=== PATIENT | female | born 1970 | race Caucasian/White ===

== ENCOUNTER 2019-05-19 12:12 | Inpatient (IN) | payer SELFPAY ==
[2019-05-19] MEDS ORDERED: Adacel (T-DAP) 0.5 ML SYRINGE ONE (12:35)
[2019-05-19 12:37] LABS: INR-International Normal Ratio 1.2; PTT 25.9 SEC (22.9-36.1); Prothrombin Time 15.6 SEC (12.0-14.7)
[2019-05-19 12:40] LABS: BHCG - Serum Indeterminate (NEGATIVE); Pregs Control Background? CLEAR/WHITE (CLR/WHITE); Pregs Control Bar Appear? YES (CONTROL BAR)
[2019-05-19 12:41] LABS: Hemoglobin 12.5 g/dL (12.0-16.0); Mean Corpuscular HGB CONC 32.4 g/dL (32.0-36.0); Mean Corpuscular Hemoglobin 29.9 pg (27.0-31.0); Mean Corpuscular Volume 92.3 fL (78.0-98.0); Mean Platelet Volume 7.2 fL (7.4-10.4); Platelet Count 260 thou/uL (130-400); RBC Distribution Width 12.9 % (11.5-14.5); Red Blood Cell (RBC) Count 4.19 mill/uL (4.20-5.40); White Blood Cell (WBC) Count 24.8 thou/uL (4.8-10.8)
[2019-05-19] MEDS ORDERED: Albuterol Sulfate 2.5 mg/3 ml Neb ONE (12:46)
[2019-05-19] MEDS ORDERED: Albuterol Sulfate 2.5 mg/0.5 ml Neb ONE (12:46)
[2019-05-19 12:47] LABS: ALT (SGPT) 58 U/L (8-55); AST (SGOT) 89 U/L (5-34); Albumin 3.3 g/dL (3.5-5.0); Alkaline Phosphatase 82 U/L (40-110); Anion Gap 17 mmol/L (10-20); BUN (Urea Nitrogen) 15 mg/dL (7.0-18.7); Bilirubin, Total 0.4 mg/dL (0.2-1.2); Calc. Creatinine Clearance 0 mL/min (70-130); Calcium 8.3 mg/dL (7.8-10.44); Carbon Dioxide 18 mmol/L (22-29); Chloride 105 mmol/L (98-107); Estimated GFR-MDRD 44; Globulin 2.3 g/dL (2.4-3.5); Protein, Total 5.6 g/dL (6.0-8.3); Sodium 136 mmol/L (136-145)
[2019-05-19 12:49] LABS: ALV-art Gradient 634.575 (0-20); Analyzer IN Cardio ER; Base Excess (BEa) -1.5 mEq/L (-2.0 to +3.0); CO2 Tension 25.3 mmHg (35.0-45.0); Calcium, Ionized 1.42 mmol/L (1.12-1.30); Carboxyhemoglobin (COHb) 1.7 gm% (0.0-3.0); Hemoglobin (Hb) 12.8 g/dL (12.0-16.0); O2 Tension (PaO2) 46.8 mmHg (80.0-100.0); Potassium - ABG Lab 3.39 mmol/L (3.70-5.30); Puncture Site LF; pH, Arterial 7.52 (7.35-7.45)
[2019-05-19 12:52] LABS: Glucose 310 mg/dL (70-105)
[2019-05-19 12:58] LABS: Band 35 % (5-11); Eosinophils 14 % (0-10); Lymphocytes 10 % (21-51); MDiff Complete? YES; Monocytes 4 % (0-10); Neutrophil 35 % (42-75); Ovalocytes SLIGHT = 2-5 cells (100X) (0-1/hpf); Platelet Morphology Comment Appears Adequate; Polychromasia SLIGHT = 2-3 cells (100X) (0-2/hpf); Reactive Lymphocytes 2 % (0-10); Tear Drops SLIGHT = 2-5 cells (100X) (0-1/hpf)
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
[2019-05-19] MEDS ORDERED: Iopamidol-370 76% 500 ML 1 ML ONE ×2 (13:36→13:38)
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
[2019-05-19] MEDS ORDERED: manNITOL 20% 0 ML ONE (13:40)
[2019-05-19] MEDS ORDERED: manNITOL 20% 500 ML ONE ×2 (13:41→13:44)
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
[2019-05-19] MEDS ORDERED: hydrALAZINE 20 MG/ML VIAL SLOW IVP PRN (14:07)
[2019-05-19] MEDS ORDERED: Dextrose 50% Abboject 50 ML SYRINGE SLOW IVP PRN (14:07)
[2019-05-19] MEDS ORDERED: Insulin Regular 300 UNITS/3 ML VIAL SC PRN (14:07)
[2019-05-19] MEDS ORDERED: Dextrose 5% in Water 1,000 ML IV PRN (14:07)
[2019-05-19] MEDS ORDERED: Fentanyl 100 MCG/2 ML VIAL SLOW IVP PRN (14:10)
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
[2019-05-19 15:47] LABS: Lactic Acid 5.2 mmol/L (0.5-2.2)
--- NOTE | 2019-05-19 17:24 | ULT ---
Abdominal ultrasound Limited: HISTORY: Postoperative looking for blood and abdomen. A FAST scan was performed. All 4 quadrants were evaluated for the presence for fluid. There is a very small focus of fluid approximating 0.7 x 1.5 cm adjacent to the posterior spleen. IMPRESSION: A small confined focus of fluid is noted posterior to the spleen. No significant free intraperitoneal fluid or hemorrhage demonstrated on this study.
[2019-05-19 18:04] LABS: Actual Bicarbonate (HCO3a) 17.5 mEq/L (22-28); Base Excess (BEa) -6.5 mEq/L (-2.0 to +3.0); CO2 Tension 30.2 mmHg (35.0-45.0); Calcium, Ionized 1.16 mmol/L (1.12-1.30); Carboxyhemoglobin (COHb) 0.6 gm% (0.0-3.0); Hemoglobin (Hb) 11.4 g/dL (12.0-16.0); O2 Tension (PaO2) 145.7 mmHg (80.0-100.0); Potassium - ABG Lab 3.21 mmol/L (3.70-5.30); pH, Arterial 7.38 (7.35-7.45)
[2019-05-19 18:05] LABS: Puncture Site RBR
[2019-05-19 18:46] LABS: Hemoglobin 9.9 g/dL (12.0-16.0); Mean Corpuscular HGB CONC 33.4 g/dL (32.0-36.0); Mean Corpuscular Hemoglobin 30.4 pg (27.0-31.0); Mean Platelet Volume 7.1 fL (7.4-10.4); Platelet Count 142 thou/uL (130-400); RBC Distribution Width 13.1 % (11.5-14.5); Red Blood Cell (RBC) Count 3.24 mill/uL (4.20-5.40)
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
[2019-05-19] MEDS: Sodium Chloride 0.9% 1,000 ML IV SCH (19:00)
[2019-05-19 19:06] LABS: Band 44 % (5-11); Lymphocytes 7 % (21-51); MDiff Complete? YES; Monocytes 8 % (0-10); Neutrophil 39 % (42-75); Platelet Morphology Comment Appears Adequate; Polychromasia SLIGHT = 2-3 cells (100X) (0-2/hpf); Reactive Lymphocytes 2 % (0-10)
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
[2019-05-19 19:42] VITALS: BMI 31.0
[2019-05-19] MEDS ORDERED: Levothyroxine 100 MCG SDV SLOW IVP SCH (20:15)
[2019-05-19] MEDS: Norepinephrine 8 MG in Dextrose 5% in Water 242 ML IVPB PRN (20:20)
[2019-05-19] MEDS: Levothyroxine Sodium 400 MCG in Sodium Chloride 0.9% 100 ML IVPB SCH (20:35)
[2019-05-19 20:42] LABS: Actual Bicarbonate (HCO3a) 14.8 mEq/L (22-28); Base Excess (BEa) -11.2 mEq/L (-2.0 to +3.0); CO2 Tension 33.5 mmHg (35.0-45.0); Carboxyhemoglobin (COHb) 0.1 gm% (0.0-3.0); Hemoglobin (Hb) 10.5 g/dL (12.0-16.0); O2 Tension (PaO2) 82.9 mmHg (80.0-100.0); Potassium - ABG Lab 3.22 mmol/L (3.70-5.30); pH, Arterial 7.26 (7.35-7.45)
[2019-05-19 20:44] LABS: ALV-art Gradient 160.425 (0-20); Puncture Site RBR
[2019-05-19] MEDS ORDERED: Sodium Chloride 0.9% 1,000 ML IV SCH ×2 (20:45→21:30)
[2019-05-19] MEDS ORDERED: Sodium Bicarb 50 MEQ/50 ML Abboject 8.4% SYRINGE IVP SCH (22:00)
[2019-05-19] MEDS: Acetaminophen 1,000 MG in Premix Bag 1 BAG IVPB SCH (22:00)
[2019-05-19] MEDS: CEFAZOLIN 2 GM in Premix Bag 1 BAG IVPB SCH (22:06)
[2019-05-19] MEDS: Famotidine/PF 20 mg/2ml Vial SLOW IVP SCH (22:07)
[2019-05-20] MEDS: Levothyroxine Sodium 400 MCG in Sodium Chloride 0.9% 100 ML IVPB SCH ×3 (00:17→12:24)
[2019-05-20] MEDS: Norepinephrine 8 MG in Dextrose 5% in Water 242 ML IVPB PRN ×3 (00:17→09:37)
[2019-05-20] MEDS: Acetaminophen 1,000 MG in Premix Bag 1 BAG IVPB SCH ×3 (00:17→12:24)
--- NOTE | 2019-05-20 01:21 | PRG ---
DATE OF SERVICE: 05/20/2019 SUBJECTIVE: The patient was seen this evening in the critical care unit. The patient remains on mechanical ventilatory support. The patient has had good urinary output. The patient's blood pressure is currently stable after receiving sodium bicarb and albumin. Pupils are nonreactive and unequal. Left pupil is approximately 4 mm and right pupil approximately 6 mm. The patient does occasionally over breathe the vent. PLAN: 1. Continue with serial physical and neurologic exams. 2. Organ transplant is currently at the bedside. 3. We will continue to resuscitate the patient. Job ID: [id number]
[2019-05-20 02:30] VITALS: BP 117/70
[2019-05-20] MEDS: Sodium Chloride 0.9% 1,000 ML IV SCH ×2 (03:06→05:54)
[2019-05-20 03:56] LABS: Band 21 % (5-11); Hemoglobin 8.9 g/dL (12.0-16.0); Lymphocytes 14 % (21-51); MDiff Complete? YES; Mean Corpuscular HGB CONC 35.4 g/dL (32.0-36.0); Mean Corpuscular Hemoglobin 31.4 pg (27.0-31.0); Mean Corpuscular Volume 88.6 fL (78.0-98.0); Mean Platelet Volume 8.3 fL (7.4-10.4); Monocytes 6 % (0-10); Neutrophil 59 % (42-75); Platelet Count 131 thou/uL (130-400); RBC Distribution Width 13.4 % (11.5-14.5); Red Blood Cell (RBC) Count 2.85 mill/uL (4.20-5.40); White Blood Cell (WBC) Count 19.7 thou/uL (4.8-10.8)
[2019-05-20 03:59] LABS: Lactic Acid 3.6 mmol/L (0.5-2.2)
[2019-05-20 04:23] LABS: ALT (SGPT) 57 U/L (8-55); AST (SGOT) 112 U/L (5-34); Albumin 3.2 g/dL (3.5-5.0); Alkaline Phosphatase 57 U/L (40-110); Anion Gap 12 mmol/L (10-20); BUN (Urea Nitrogen) 19 mg/dL (7.0-18.7); Bilirubin, Total 0.9 mg/dL (0.2-1.2); Calc. Creatinine Clearance 65 mL/min (70-130); Calcium 8.4 mg/dL (7.8-10.44); Carbon Dioxide 29 mmol/L (22-29); Chloride 113 mmol/L (98-107); Estimated GFR-MDRD 37; Globulin 1.4 g/dL (2.4-3.5); Glucose 183 mg/dL (70-105); Magnesium 1.7 mg/dL (1.6-2.6); Phosphorus 2.8 mg/dL (2.3-4.7); Potassium 3.5 mmol/L (3.5-5.1); Protein, Total 4.6 g/dL (6.0-8.3); Sodium 150 mmol/L (136-145)
[2019-05-20] MEDS: CEFAZOLIN 2 GM in Premix Bag 1 BAG IVPB SCH (05:54)
[2019-05-20 06:33] LABS: Actual Bicarbonate (HCO3a) 25.1 mEq/L (22-28); Base Excess (BEa) 1.2 mEq/L (-2.0 to +3.0); CO2 Tension 37.4 mmHg (35.0-45.0); Calcium, Ionized 1.11 mmol/L (1.12-1.30); Carboxyhemoglobin (COHb) 0.5 gm% (0.0-3.0); O2 Tension (PaO2) 90.8 mmHg (80.0-100.0); Potassium - ABG Lab 3.69 mmol/L (3.70-5.30); pH, Arterial 7.45 (7.35-7.45)
[2019-05-20 06:38] LABS: Puncture Site RBRACH
[2019-05-20] MEDS ORDERED: Calcium Chloride 1 GM/10 ML Abboject SYRINGE IVP SCH (07:15)
[2019-05-20] MEDS ORDERED: Lactated Ringer's 1,000 ML IV SCH (07:15)
[2019-05-20] MEDS ORDERED: Magnesium 2 GM/50 ML 2 GM in Premix Bag 1 BAG IVPB SCH (07:30)
[2019-05-20] MEDS ORDERED: Calcium Chloride 13.6 MEQ in Sodium Chloride 0.9% 100 ML IVPB SCH (07:45)
[2019-05-20] MEDS ORDERED: Potassium Phosphate 15 MMOL in Sodium Chloride 0.9% 250 ML 100 ML IVPB SCH (08:00)
[2019-05-20] MEDS ORDERED: Potassium Phosphate 15 MMOL in Sodium Chloride 0.9% 250 ML 250 ML IVPB SCH (08:00)
--- NOTE | 2019-05-20 09:01 | RAD ---
CHEST 1 VIEW: INDICATION: History of left-sided chest tube. COMPARISON: Prior exam dated 05/19/2019. FINDINGS: The patient remains intubated with associated gastric catheter in place and a left subclavian central venous catheter placement. There has been interval placement of a right-sided thoracostomy tube. R ight-sided pneumothorax has reduced in size. Comminuted right clavicle fracture is similar-appearing . Right-sided rib fractures are similar-appearing. IMPRESSION: 1. Resolution of previously seen right-sided pneumothorax with placement of right-sided thoracostomy tube. 2. Endotracheal tube, left subclavian central venous catheter, and gastric catheter as above. 3. The left lung is clear. 4. Multiple comminuted right-sided rib fractures and right-sided clavicle fracture. POS: OFF
[2019-05-20] MEDS ORDERED: Albumin 5% 500 ML ONE (09:29)
[2019-05-20] MEDS: Famotidine/PF 20 mg/2ml Vial SLOW IVP SCH (09:35)
[2019-05-20] MEDS ORDERED: Vasopressin 40 UNIT, Admixture Fee 1 EACH in Sodium Chloride 0.9% 100 ML IV SCH (11:45)
--- NOTE | 2019-05-20 12:23 | NM ---
NUCLEAR MEDICINE BRAIN CEREBRAL FLOW STUDY: Date: 05/20/19 HISTORY: Cerebral edema, concern for brain . RADIOPHARMACEUTICAL: 33 mCi technetium-99m HMPAO injected intravenously. FINDINGS: No intracranial blood flow is seen. No tracer uptake is noted by the brain parenchyma. IMPRESSION: Absent brain perfusion. POS: TPC
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
[2019-05-20 12:48] VITALS: TEMP 99.4
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
== END 2019-05-20 12:15 | disposition expired | DRG 963 ==
LOC: EDBD 12:12 → ERS 12:12 → EDBD 13:50 → CCU 13:50
PROVIDERS: ADMIT Surgery; ATTEND Surgery
PROC: 0BH17EZ Insertion of Endotracheal Airway into Trachea, Via Natural or Artificial Opening (ICD-10-PCS; principal; 2019-05-19)
PROC: 5A1945Z Respiratory Ventilation, 24-96 Consecutive Hours (ICD-10-PCS; 2019-05-19)
PROC: 02HV33Z Insertion of Infusion Device into Superior Vena Cava, Percutaneous Approach (ICD-10-PCS; 2019-05-19)
PROC: 0W9930Z Drainage of Right Pleural Cavity with Drainage Device, Percutaneous Approach (ICD-10-PCS; 2019-05-19)
PROC: 30233L1 Transfusion of Nonautologous Fresh Plasma into Peripheral Vein, Percutaneous Approach (ICD-10-PCS; 2019-05-19)
PROC: 30233N1 Transfusion of Nonautologous Red Blood Cells into Peripheral Vein, Percutaneous Approach (ICD-10-PCS; 2019-05-19)
PROC: 30233K1 Transfusion of Nonautologous Frozen Plasma into Peripheral Vein, Percutaneous Approach (ICD-10-PCS; 2019-05-19)
PROC: 3E033XZ Introduction of Vasopressor into Peripheral Vein, Percutaneous Approach (ICD-10-PCS; 2019-05-19)
DX: S06.1X9A Traumatic cerebral edema with loss of consciousness of unspecified duration, initial encounter (principal); I77.71 Dissection of carotid artery; S27.2XXA Traumatic hemopneumothorax, initial encounter; I77.76 Dissection of artery of upper extremity; J96.01 Acute respiratory failure with hypoxia; T79.4XXA Traumatic shock, initial encounter; S36.031A Moderate laceration of spleen, initial encounter; S12.400A Unspecified displaced fracture of fifth cervical vertebra, initial encounter for closed fracture; S12.600A Unspecified displaced fracture of seventh cervical vertebra, initial encounter for closed fracture; S62.101B Fracture of unspecified carpal bone, right wrist, initial encounter for open fracture; S32.301A Unspecified fracture of right ilium, initial encounter for closed fracture; S22.43XA Multiple fractures of ribs, bilateral, initial encounter for closed fracture; E87.2 Acidosis; D62 Acute posthemorrhagic anemia; N17.9 Acute kidney failure, unspecified; S27.322A Contusion of lung, bilateral, initial encounter; S06.359A Traumatic hemorrhage of left cerebrum with loss of consciousness of unspecified duration, initial encounter; S01.81XA Laceration without foreign body of other part of head, initial encounter; S31.114A Laceration without foreign body of abdominal wall, left lower quadrant without penetration into peritoneal cavity, initial encounter; S31.113A Laceration without foreign body of abdominal wall, right lower quadrant without penetration into peritoneal cavity, initial encounter; S80.212A Abrasion, left knee, initial encounter; S80.211A Abrasion, right knee, initial encounter; S20.212A Contusion of left front wall of thorax, initial encounter; S20.211A Contusion of right front wall of thorax, initial encounter; S42.101A Fracture of unspecified part of scapula, right shoulder, initial encounter for closed fracture; S42.001A Fracture of unspecified part of right clavicle, initial encounter for closed fracture; R40.2312 Coma scale, best motor response, none, at arrival to emergency department; R40.2112 Coma scale, eyes open, never, at arrival to emergency department; R40.2212 Coma scale, best verbal response, none, at arrival to emergency department; V43.62XA Car passenger injured in collision with other type car in traffic accident, initial encounter; E83.51 Hypocalcemia
CPT/HCPCS: 36416; 36430; 70450; 70486; 70496; 70498; 71045; 71260; 72125; 72170; 74177; 76705; 78610; 80053; 82805; 83605; 83735; 84100; 84703; 85007; 85025; 85027; 85610; 85730; 86850; 86900; 86901; 90715; 94002; 94003; 94760; A9521; G0390; J0131; J0690; J1815; J3475; J3490; J7050; J7070; J7611; J7799; L0120; P9016; P9045; P9048; P9059; Q9967; S0028

== ENCOUNTER 2019-05-20 12:15 | Day surgery (SDC) | payer OTHER ==
[2019-05-20] MEDS ORDERED: Dextrose 50% Abboject 50 ML SYRINGE SLOW IVP PRN (13:09)
[2019-05-20] MEDS ORDERED: Dextrose 5% in Water 1,000 ML IV PRN (13:09)
[2019-05-20] MEDS ORDERED: Fentanyl 100 MCG/2 ML VIAL SLOW IVP PRN (13:09)
[2019-05-20] MEDS ORDERED: Insulin Regular 300 UNITS/3 ML VIAL SC PRN (13:10)
[2019-05-20] MEDS ORDERED: hydrALAZINE 20 MG/ML VIAL SLOW IVP PRN (13:10)
[2019-05-20] MEDS ORDERED: Norepinephrine 8 MG in Dextrose 5% in Water 242 ML IVPB PRN ×2 (13:11→13:48)
[2019-05-20] MEDS ORDERED: Levothyroxine Sodium 400 MCG in Sodium Chloride 0.9% 100 ML IVPB SCH (13:15)
[2019-05-20] MEDS ORDERED: Lactated Ringer's 1,000 ML IV SCH (13:15)
[2019-05-20] MEDS ORDERED: Vasopressin 40 UNIT, Admixture Fee 1 EACH in Sodium Chloride 0.9% 100 ML IV SCH (13:15)
[2019-05-20] MEDS ORDERED: PHOS-NAK 1 PKT PACK PO PRN ×2 (13:36)
[2019-05-20] MEDS ORDERED: Magnesium 2 GM/50 ML 2 GM in Premix Bag 1 BAG IVPB PRN (13:36)
[2019-05-20] MEDS ORDERED: Potassium Chloride 40 MEQ in Premix Bag 1 BAG IVPB PRN (13:36)
[2019-05-20] MEDS ORDERED: Potassium Phosphate 15 MMOL in Sodium Chloride 0.9% 250 ML 250 ML IV PRN (13:36)
[2019-05-20] MEDS ORDERED: Potassium Chloride 20 MEQ TAB PO PRN (13:36)
[2019-05-20] MEDS ORDERED: Magnesium Oxide 400 MG TAB PO PRN ×2 (13:36)
[2019-05-20] MEDS ORDERED: Potassium Phosphate 9 MMOL in Sodium Chloride 0.9% 100 ML IVPB PRN (13:36)
[2019-05-20] MEDS ORDERED: Potassium Chloride 40 MEQ in Sodium Chloride 0.9% 250 ML 250 ML IVPB PRN (13:36)
[2019-05-20] MEDS ORDERED: Potassium Phosphate 12 MMOL in Sodium Chloride 0.9% 250 ML 250 ML IV PRN (13:36)
[2019-05-20] MEDS ORDERED: CCU ELECTROLYTE REPLACEMENT PROTOCOL FS PRN (13:36)
[2019-05-20] MEDS ORDERED: Vasopressin 20 UNIT in Sodium Chloride 0.9% 250 ML 250 ML IV SCH (13:45)
[2019-05-20] MEDS ORDERED: Albuterol Sulfate 2.5 mg/3 ml Neb NEB PRN (13:45)
[2019-05-20 13:56] LABS: Actual Bicarbonate (HCO3a) 21.3 mEq/L (22-28); Base Excess (BEa) -2.4 mEq/L (-2.0 to +3.0); CO2 Tension 31.6 mmHg (35.0-45.0); Calcium, Ionized 1.22 mmol/L (1.12-1.30); Carboxyhemoglobin (COHb) 2.7 gm% (0.0-3.0); Hemoglobin (Hb) 6.8 g/dL (12.0-16.0); O2 Tension (PaO2) 92.4 mmHg (80.0-100.0); Potassium - ABG Lab 3.72 mmol/L (3.70-5.30); pH, Arterial 7.45 (7.35-7.45)
[2019-05-20 14:04] LABS: Puncture Site RBRACH
--- NOTE | 2019-05-20 14:19 | RAD ---
Exam: Chest one view HISTORY:Chest tube Comparison: 05/20/2019 at 3:55 AM FINDINGS: Cardiac silhouette:Upper normal cardiac silhouette Lines and tubes: Stable endotracheal tube, nasogastric tube, right-sided chest tube and left-sided ce ntral venous catheter. Aorta: Unremarkable Pulmonary vessels: Normal Costophrenic angles: Clear LUNGS: Patchy interstitial opacities in the right lung.. Pneumothorax: None Osseous abnormalities: Multiple right rib fractures. Right clavicle fracture. IMPRESSION: 1. Multiple right rib fractures. 2. Right clavicle fracture. 3. No evidence of a right-sided pneumothorax.
[2019-05-20] MEDS: Albuterol Sulfate 2.5 mg/3 ml Neb NEB SCH ×3 (14:33→22:26)
[2019-05-20 15:19] LABS: INR-International Normal Ratio 1.4; PTT 30.5 SEC (22.9-36.1)
[2019-05-20] MEDS: Sodium Chloride 0.45% 1,000 ML IV SCH ×2 (15:25→20:59)
[2019-05-20 15:29] LABS: Lactic Acid 2.9 mmol/L (0.5-2.2)
[2019-05-20 15:31] LABS: Band 29 % (5-11); Eosinophils 1 % (0-10); Hemoglobin 7.1 g/dL (12.0-16.0); Lymphocytes 26 % (21-51); MDiff Complete? YES; Mean Corpuscular HGB CONC 33.6 g/dL (32.0-36.0); Mean Corpuscular Hemoglobin 30.5 pg (27.0-31.0); Mean Corpuscular Volume 90.9 fL (78.0-98.0); Mean Platelet Volume 8.4 fL (7.4-10.4); Metamyelocyte 1 % (0-0); Monocytes 4 % (0-10); Neutrophil 38 % (42-75); Platelet Count 96 thou/uL (130-400); Platelet Morphology Comment Appears Decreased; Polychromasia SLIGHT = 2-3 cells (100X) (0-2/hpf); RBC Distribution Width 13.7 % (11.5-14.5); Reactive Lymphocytes 1 % (0-10); Red Blood Cell (RBC) Count 2.33 mill/uL (4.20-5.40); Target Cells SLIGHT = 2-5 cells (100X) (0-1/hpf); Tear Drops SLIGHT = 2-5 cells (100X) (0-1/hpf); White Blood Cell (WBC) Count 13.7 thou/uL (4.8-10.8)
[2019-05-20 15:48] LABS: ALT (SGPT) 48 U/L (8-55); AST (SGOT) 95 U/L (5-34); Albumin 3.4 g/dL (3.5-5.0); Alkaline Phosphatase 54 U/L (40-110); Anion Gap 10 mmol/L (10-20); BUN (Urea Nitrogen) 20 mg/dL (7.0-18.7); Bilirubin, Direct 0.5 mg/dL (0.1-0.3); Bilirubin, Total 0.8 mg/dL (0.2-1.2); CKMB 47.9 ng/mL (0-6.6); Calc. Creatinine Clearance 0 mL/min (70-130); Calcium 9.1 mg/dL (7.8-10.44); Carbon Dioxide 30 mmol/L (22-29); Chloride 119 mmol/L (98-107); Estimated GFR-MDRD 42; Gamma GT (GGT) 28 U/L (9-36); Globulin 1.2 g/dL (2.4-3.5); Glucose 133 mg/dL (70-105); Lipase 8 U/L (8-78); Magnesium 2.5 mg/dL (1.6-2.6); Phosphorus 4.6 mg/dL (2.3-4.7); Potassium 3.9 mmol/L (3.5-5.1); Protein, Total 4.6 g/dL (6.0-8.3); Sodium 155 mmol/L (136-145); Troponin I 0.369 ng/mL (< 0.028)
[2019-05-20 16:05] LABS: Actual Bicarbonate (HCO3a) 26.1 mEq/L (22-28); Base Excess (BEa) 2.8 mEq/L (-2.0 to +3.0); CO2 Tension 34.2 mmHg (35.0-45.0); Calcium, Ionized 1.17 mmol/L (1.12-1.30); Carboxyhemoglobin (COHb) 0.3 gm% (0.0-3.0); Hemoglobin (Hb) 7.4 g/dL (12.0-16.0); O2 Tension (PaO2) 278.3 mmHg (80.0-100.0); Potassium - ABG Lab 3.56 mmol/L (3.70-5.30)
[2019-05-20 16:08] LABS: Puncture Site RBRACH
[2019-05-20 17:00] VITALS: BMI 32.8
[2019-05-20 17:01] LABS: Bilirubin Negative (Negative); Blood, Urine 3+ (Negative); Clarity Clear (Clear); Glucose, Urine (Dipstick) Normal (Negative); Leukocyte Negative Leu/uL (Negative); Nitrite Negative (Negative); Protein, Urine (Dipstick) 20 mg/dL (Neg-Trace); RBC/HPF 0-3 HPF (0-3); Squamous Epithelial None Seen HPF (0-3); Urobilinogen Normal mg/dL (Less than 2)
[2019-05-20 17:08] LABS: Bacteria/HPF Rare-Few HPF (None Seen)
[2019-05-20 17:09] LABS: Urine Culture Reflex Yes Yes
[2019-05-20] MEDS: Levothyroxine Sodium 400 MCG in Sodium Chloride 0.9% 100 ML IVPB SCH ×3 (17:29→21:59)
[2019-05-20] MEDS: CEFAZOLIN 2 GM in Premix Bag 1 BAG IVPB SCH ×2 (17:45→21:47)
[2019-05-20] MEDS: Piperacillin/Tazobactam 3.375 GM in Sodium Chloride 0.9% 100 ML IVPB SCH ×2 (17:46→20:59)
[2019-05-20] MEDS: Phytonadione 10 MG in Sodium Chloride 0.9% 50 ML IVPB SCH ×4 (18:30→21:48)
[2019-05-20] MEDS ORDERED: methylPREDNISolone Sod Succ 2 GM in Sodium Chloride 0.9% 100 ML IVPB SCH (18:30)
[2019-05-20 19:19] VITALS: TEMP 98.9
[2019-05-20] MEDS ORDERED: Furosemide 20 MG/2 ML VIAL SLOW IVP SCH (19:45)
[2019-05-20 20:56] LABS: Hemoglobin 8.1 g/dL (12.0-16.0); Mean Corpuscular HGB CONC 33.4 g/dL (32.0-36.0); Mean Corpuscular Hemoglobin 30.5 pg (27.0-31.0); Mean Corpuscular Volume 91.4 fL (78.0-98.0); Mean Platelet Volume 8.7 fL (7.4-10.4); Platelet Count 85 thou/uL (130-400); RBC Distribution Width 13.3 % (11.5-14.5); Red Blood Cell (RBC) Count 2.64 mill/uL (4.20-5.40); White Blood Cell (WBC) Count 9.4 thou/uL (4.8-10.8)
[2019-05-20] MEDS ORDERED: Famotidine/PF 20 mg/2ml Vial SLOW IVP SCH (21:00)
[2019-05-20 21:01] LABS: INR-International Normal Ratio 1.6; PTT 30.3 SEC (22.9-36.1); Prothrombin Time 18.6 SEC (12.0-14.7)
[2019-05-20 21:12] LABS: Band 20 % (5-11); Lymphocytes 18 % (21-51); MDiff Complete? YES; Neutrophil 62 % (42-75); Platelet Morphology Comment Appears Decreased
[2019-05-20 21:13] LABS: ALT (SGPT) 41 U/L (8-55); AST (SGOT) 81 U/L (5-34); Alkaline Phosphatase 54 U/L (40-110); Anion Gap 10 mmol/L (10-20); BUN (Urea Nitrogen) 18 mg/dL (7.0-18.7); Bilirubin, Direct 0.8 mg/dL (0.1-0.3); Bilirubin, Total 1.4 mg/dL (0.2-1.2); Calc. Creatinine Clearance 82 mL/min (70-130); Calcium 8.3 mg/dL (7.8-10.44); Carbon Dioxide 28 mmol/L (22-29); Chloride 119 mmol/L (98-107); Estimated GFR-MDRD 46; Globulin 1.4 g/dL (2.4-3.5); Glucose 154 mg/dL (70-105); Lipase 6 U/L (8-78); Magnesium 2.1 mg/dL (1.6-2.6); Phosphorus 4.2 mg/dL (2.3-4.7); Potassium 3.3 mmol/L (3.5-5.1); Protein, Total 4.4 g/dL (6.0-8.3); Sodium 154 mmol/L (136-145)
[2019-05-20 21:52] LABS: Base Excess (BEa) -2.1 mEq/L (-2.0 to +3.0); CO2 Tension 40.6 mmHg (35.0-45.0); Calcium, Ionized 1.16 mmol/L (1.12-1.30); Carboxyhemoglobin (COHb) 0.7 gm% (0.0-3.0); Hemoglobin (Hb) 9.6 g/dL (12.0-16.0); O2 Tension (PaO2) 210.6 mmHg (80.0-100.0); Potassium - ABG Lab 3.49 mmol/L (3.70-5.30); Puncture Site LRA; pH, Arterial 7.37 (7.35-7.45)
[2019-05-20] MEDS ORDERED: Potassium Chloride 40 MEQ in Premix Bag 1 BAG IVPB SCH (22:00)
[2019-05-20 22:25] VITALS: BP 126/74
[2019-05-20] MEDS ORDERED: Phytonadione 10 MG in Sodium Chloride 0.9% 50 ML IVPB SCH (22:30)
[2019-05-20 23:48] LABS: Hemoglobin A1c 5.3 % (4.0-6.0)
[2019-05-20] MEDS ORDERED: Piperacillin/Tazobactam 3.375 GM in Sodium Chloride 0.9% 100 ML IVPB SCH (23:59)
--- NOTE | 2019-05-22 14:30 | EKG ---
Test Reason : ORGAN [employer]OR Blood Pressure : / mmHG Vent. Rate : 091 BPM Atrial Rate : 091 BPM P-R Int : 156 ms QRS Dur : 090 ms QT Int : 384 ms P-R-T Axes : 043 056 217 degrees QTc Int : 472 ms Normal sinus rhythm T wave abnormality, consider inferior ischemia T wave abnormality, consider anterolateral ischemia Prolonged QT Abnormal ECG No previous ECGs available Confirmed by LOUIE RAMIREZ (2) on 05/22/2019 2:30:05 PM Referred By: [facility] Confirmed By:LOUIE RAMIREZ
== END 2019-05-21 01:10 | disposition expired ==
LOC: SDC 12:15 → CCU 12:15 → SDC 13:08
DX: Z52.89 Donor of other specified organs or tissues
CPT/HCPCS: 36430; 71045; 81001; 82150; 82248; 82553; 82805; 82977; 83036; 83605; 83690; 83735; 84100; 84484; 85384; 85610; 85730; 86850; 86900; 86901; 87086; 87205; 93005; 93010; 94640; 94667; J0690; J1940; J2543; J2930; J3430; J3480; J3490; J7070; J7611; P9016